=== PATIENT | female | born 1975 | race Caucasian/White ===

== ENCOUNTER → 2016-11-23 | Day surgery (SDC) | payer OTHER ==
[~2016-11-23] VITALS: Ht 170.2 cm; Wt 90.7 kg
[~2016-11-23] MED LIST: IBUPROFEN800 M1 PO; KETOROLAC TROME10 M1 PO; NICOTINE PATCH1 EAC3 TOP; PERCOCET 5-3251 EACH PO
--- NOTE | 2016-12-01 17:00 | Operative Report ---
Operative/Inv Procedure Report Surgery Date: 11/23/16 Name of Procedure: Laparoscopic tubal sterilization and D&C Pre-Operative Diagnosis: Metromenorrhagia and multiparity Post-Operative Diagnosis: Same Estimated Blood Loss: less than 50ml Surgeon/Tower Hoist Operator: REGINALD ARGUELLES,ROSE Parsons Anesthesia: general endotracheal tube Operative/Procedure Note Note: Procedure note patient was seen the operating room placed on position after adequate anesthesia patient placed in dorsolithotomy position vagina prepped draped fashion bladder was catheterized examination anesthesia performed this point CO2 tenaculum was placed on the Intralipid cervix gentle downward traction on the cervix is dilated 29 Hegar to allow for sharp curettage endometrial lining sharp curettage and cervical lining to specimens sent to pathology patient tolerated that well. At this point surgeon regowned and gloved at the level of the umbilicus a stab incision made to allow for the entry of Veress needle the abdomen was insufflated possibly fully Z CO2 to liver edge dullness which point the Veress needle was removed a 10 mm trocar was inserted atraumatically at the umbilicus through that sheath a laparoscope was placed under direct visualization a 5 mm port placed 2 fingerbreadths of midline through that port a Kleppinger was placed the right tube was picked up carried to its fimbriated end possibly 7 cm that tube Bovie left tube was picked up carried to its fimbriated end approximately 7 to that tube was Bovie coagulated patient tolerated that well. All instruments removed from the abdomen as well as maximal CO2 the incision at the umbilicus the fascia 0 skin was reapproximated both incisions and 30 Marcaine was injected underneath skin at the end of the case Schmitz cannula was moved on since removed gentle the counts were correct the patient was extubated and transported crit room awake alert
== END ==
LOC: STS 01:10
DX: Z30.2 Encounter for sterilization (principal); N92.1 Excessive and frequent menstruation with irregular cycle; F17.200 Nicotine dependence, unspecified, uncomplicated
CPT/HCPCS: 81025; 88305; J0131; J0694; J1100; J2250; J2405

== ENCOUNTER 2017-02-15 01:29 | Inpatient (IN) | payer OTHER ==
[~2017-02-15] VITALS: Ht 170.2 cm; Wt 95.3 kg
[~2017-02-15 01:29] MED LIST changes: -IBUPROFEN800 M1 PO; -NICOTINE PATCH1 EAC3 TOP
[2017-02-15 15:00] VITALS: BP 140/80
[2017-02-15 16:00] VITALS: BP 140/80
--- NOTE | 2017-02-15 16:03 | Operative Report ---
Operative/Inv Procedure Report Surgery Date: 02/15/17 Name of Procedure: CYSTOSOCOPY: BILATERAL STENT INSERTION Pre-Operative Diagnosis: MENOMETRORRHAGIA Post-Operative Diagnosis: SAME Estimated Blood Loss: scant Surgeon/Executive Advisor: MD ORTIZ ARNOLD-UROLOGY Anesthesia: general endotracheal tube Specimens: UCX Complications: NONE Operative/Procedure Note Note: The patient was taken to the operating room and placed on the OR table in supine position. Timeout was performed, with the patient awake, to confirm identify, planned procedures, anesthesia, antibiotics and other pertinent ebony-operative information. After adequate anesthesia, and IV antibiotics, the patient was placed in lithotomy Yellow-fin stirrups. She was then draped and prepped in the usual surgical fashion, including a vaginal prep. A 22 Ugandan cystoscope sheath with a 30 angle lens was inserted into the bladder without significant difficulty. The bladder was thoroughly and systematically examined, and was noted to be free of tumor, free of stone, free of endometriosis. Both ureteral orifices were in their orthotopic positions with clear reflux bilaterally. Under direct visualization the left orifice was intubated with a 5 Ugandan whistle-tip catheter, which was advanced easily into the left kidney pelvis. The right ureteral orifice was intubated with a second 5 Ugandan ureteral whistle tip catheter, and advanced into the right renal pelvis without difficulty. For identification purposes the blue marked stent went into the left kidney and the right ureteral stent was marked red. Urine culture was obtained and sent to pathology. The cystoscope was then removed leaving both stents in proper place. An 18 Ugandan Khalil catheter was inserted draining clear fluid and 10 mL of sterile water was then placed in the balloon. The ends ureteral stents, which protruded externally, were taped to the Khalil catheter in order to secure their position. The individual ureteral stents were then connected to their individual drainage devices. The patient tolerated the procedure well. All sponge needle and instrument count were correct at the end of this procedure. The patient was then placed in supine position with Venodyne's in place. At this point, Dr. Montelongo was able to proceed with her patient's surgery. Findings: NORMAL BLADDER Discharge Disposition: PROCEED WITH DR. MONTELONGO CC: VALERI ORTIZ MD
[2017-02-15 17:00] VITALS: BP 130/78
[2017-02-15 18:00] VITALS: BP 128/72
[2017-02-15 20:00] VITALS: BP 120/70
[2017-02-15 22:00] VITALS: BP 116/70
[2017-02-16] VITALS (9 sets, daily range): BP systolic 106–130; BP diastolic 58–82
[2017-02-16] MEDS ORDERED: NICOTINE PATCH1 EAC3 TOP (09:36)
[2017-02-16] MEDS ORDERED: IBUPROFEN800 M1 PO (09:36)
[2017-02-16 10:17] LABS: ABSOLUTE BASOPHIL COUNT 0 /CUMM (0.0-0.2); ABSOLUTE EOSINOPHIL COUNT 0 /CUMM (0.0-0.7); BASOPHIL % 0.2 % (0.0-2.0); EOSINOPHIL % 0 % (0-5); MEAN CORPUSCULAR HGB 28.5 PG (27.0-31.0)
[2017-02-16 10:20] LABS: ABSOLUTE GRANULOCYTE CT 10.6 /CUMM (1.4-6.5); ABSOLUTE MONOCYTE COUNT 1.1 /CUMM (0.10-0.60); GRANULOCYTE % 77.1 % (42.2-75.2); MEAN CORPUSCULAR HGB CONC 33.5 G/DL (33.0-37.0); MEAN CORPUSCULAR VOLUME 85.2 FL (81.0-99.0); MEAN PLATELET VOLUME 7.5 FL (7.4-10.4); PLATELET COUNT 272 /CUMM (130-400); RBC DISTRIBUTION WIDTH 15.3 % (11.5-14.5); RED BLOOD CELL CT 3.79 /CUMM (4.20-5.40)
[2017-02-16 10:21] LABS: HEMATOCRIT 32.3 % (37-47); WHITE BLOOD CELL COUNT 13.8 /CUMM (4.8-10.8)
[2017-02-17 06:00] VITALS: BP 122/68
--- NOTE | 2017-02-19 19:14 | Operative Report ---
Operative/Inv Procedure Report Surgery Date: 02/15/17 Name of Procedure: Total abdominal hysterectomy Pre-Operative Diagnosis: Pelvic pain Post-Operative Diagnosis: Same adenomyosis Estimated Blood Loss: 500 Surgeon/Welder Tack: REGINALD ARGUELLES,ROSE Parsons and Dr. Castro Beatty Anesthesia: general endotracheal tube, block Operative/Procedure Note Note: Procedure patient was taken the operating and placed on position after adequate induction general anesthesia via endotracheal tube patient placed in dorsolithotomy position the vagina from dorsal fashion bladder was catheterized and cystoscopy and stents were placed by Juan Diego Dumas MD who dictate that part of the case this point patient was returned spine position the abdomen was prepped and draped sterile fashion through an old Pfannenstiel skin incision skin was cut was carried down to rectus fascia which was cut in curvilinear fashion using curved Mayos. Peritoneum was entered bluntly Alvarez O'Keo placed in usual fashion patient was placed in Trendelenburg lap pads were placed into the abdomen the right and left round ligament were suture-ligated and identified using 0 bladder flap was developed sharply as well as bluntly this point sequentially cervical branches uterine artery and the right left oversewn using 0 suture specimen was removed using a Bovie the cuff was oversewn running locking suture of 0 was imbricated with interrupted [id number] hemostasis patient tolerated that well. At the end the case the abdomen was irrigated comes amounts of saline prepare for for hemostasis. Loly was applied to cervical cough pedicles were reexamined and resutured peritoneum was reapproximated 0 fascia was reprocessed and to continue sutures #1 Vicryl subcutaneous tissue was Bovie coagulated patient tolerated that well scheduled partially chente at the end the case the vagina was irrigated found to be hemostatic on 3 counts were correct the stents removed bilaterally tip intact urine was blood-tinged the patient was awakened from anesthesia after sterile dressing been applied to the incision and transported to the recovery room awake and alert after extubation Findings: Normal ovaries bilaterally evidence of an ectopic left tube evidence of tubal ligation uterus was 10-12 weeks adenomyosis
== END 2017-02-17 14:05 | DRG 743 ==
LOC: DELPENDDIS → SDA 01:29 → EDBEDREQ 12:35 → ENRESERV 12:55 → ENTRNSPT 14:30 → EDTRNSPTTYP 14:32 → EDTRNSPTSTS 14:36 → EDTRNSPT 14:36 → 2NB 14:54 → CMPTRNSPT 14:57 → ENPENDDIS 02-16 09:35 → 2NB 02-16 22:37
PROVIDERS: ADMIT Specialist
PROC: 0UT90ZZ Resection of Uterus, Open Approach (ICD-10-PCS; principal; 2017-02-15)
PROC: 0UTC0ZZ Resection of Cervix, Open Approach (ICD-10-PCS; principal; 2017-02-15)
PROC: 0T788DZ Dilation of Bilateral Ureters with Intraluminal Device, Via Natural or Artificial Opening Endoscopic (ICD-10-PCS; 2017-02-15)
PROC: 3E0T3CZ (ICD-10-PCS; 2017-02-15)
DX: N92.1 Excessive and frequent menstruation with irregular cycle (principal); F17.200 Nicotine dependence, unspecified, uncomplicated; R10.2 Pelvic and perineal pain; N80.0 Endometriosis of uterus
CPT/HCPCS: 2NBP; 2NSBP; 36415; 81025; 87086; 88307; C9399; J0131; J0694; J1170; J1200; J1650; J1885; J2405